=== PATIENT | male | born 1965 | race Caucasian/White ===

== ENCOUNTER 2016-11-11 09:41 | Inpatient (IN) | payer OTHER ==
[2016-11-11 09:54] VITALS: BMI 31.1
[2016-11-11] MEDS ORDERED: ASPIRIN 81 MG CHEWABLE TABLETS PO ONE (10:00)
[2016-11-11] MEDS ORDERED: HEPARIN INFUSION - 500 ML IVPB ONE (10:14)
[2016-11-11] MEDS ORDERED: ASPIRIN 81 MG CHEWABLE TABLETS ONE (10:14)
[2016-11-11 10:22] LABS: BASOPHIL 0.9 % (0-2.0); EOSINOPHIL 4.7 % (0-4.5); MCH 28.8 pg (25.7-33.7); MCHC 34.4 g/dl (32.0-35.9); MEAN CELL VOLUME 83.7 fl (80-96); MEAN PLT VOLUME 7.3 fl (7.5-11.1); NEUTROPHILS 58.7 % (42.8-82.8); PLATELET COUNT 277 K/MM3 (134-434); RDW 13.1 % (11.9-15.9); WHITE BLOOD COUNT 9.3 K/mm3 (4.0-10.0)
[2016-11-11] MEDS ORDERED: CLOPIDOGREL BISULFATE 300 MG TABLET PO ONE (10:24)
[2016-11-11] MEDS: HEPARIN INFUSION - 500 ML IVPB SCH ×2 (10:25→19:37)
[2016-11-11] MEDS ORDERED: CLOPIDOGREL BISULFATE 300 MG TABLET ONE (10:26)
[2016-11-11 10:48] LABS: INR 1.07 (0.82-1.09); PROTHROMBIN TIME (PATIENT) 11.8 SEC (9.98-11.88)
[2016-11-11 10:58] LABS: ALBUMIN 3.9 g/dl (3.4-5.0); ANION GAP 6 (8-16); BILIRUBIN,TOTAL 0.3 mg/dL (0.2-1.0); CALCIUM 9.1 mg/dL (8.5-10.1); CO2 29 mmol/L (21-32); COCKROFT - GAULT 119.86; CREATININE 1.1 mg/dL (0.7-1.3); GLUCOSE,RANDOM 159 mg/dL (74-106); MAGNESIUM 2.1 mg/dL (1.8-2.4); SGOT/AST 12 U/L (15-37); SGPT/ALT 34 U/L (12-78)
--- NOTE | 2016-11-11 10:59 | PDOC ---
History of Present Illness - History of Present Illness Initial Comments: 11/11/16 10:59 The patient is a 51 year old male, with a significant past medical history of CAD s/p 3 stents, hypertension, stable angina, and hyperlipidemia, who presents to the emergency department with epigastric pain radiating to his throat associated intermittent lightheadedness for 5 days. The patient states his pain was a 10/10 at the initial onset of pain but reports his pain is 5/10 right now. The patient describes the throat pain as a squeezing. The patient states he has usually experienced a mild chest pain with exertion s/p stent placement, however, his current pain is being experienced while at rest. The patient reports feeling lightheaded while driving yesterday and states he pulled the car to the side of the road until it subsided before he continued to drive to work. The patient states he becomes short of breath after walking a couple of blocks at baseline. He denies any worsening shortness of breath. The patient reports stopping all of his medications (plavix, aspirin, and others) about 5 months ago, and reports resuming cigarette smoking around the same time. The patient states he was made aware of a new blockage in his heart about a year ago but denies having a new stent placed. 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 She denies shortness of breath, headache and dizziness. She denies fever, chills , nausea, vomit, diarrhea and constipation. She denies dysuria, frequency, urgency and hematuria. Allergies: NKDA Past surgical history: stents x3 Social history: everyday tobacco use, denies alcohol or illicit drug use PCP - None <Maryan Zendejas - Last Filed: 11/11/16 10:59> <Elvira Samayoa - Last Filed: 11/11/16 13:20> <Hipolito Garcia - Last Filed: 11/14/16 22:04> - General Chief Complaint: Chest Pain Stated Complaint: CHEST PAIN Time Seen by Provider: 11/11/16 10:00 Past History <Maryan Zendejas - Last Filed: 11/11/16 10:59> <Elvira Samayoa - Last Filed: 11/11/16 13:20> - Past Medical History Cardiac Disorders: Yes (STENTS) HTN: Yes Hypercholesterolemia: Yes - Surgical History Cardiac Surgery: Yes (STENT X3 2014) - Psycho/Social/Smoking Cessation Hx Suicidal Ideation: No Smoking History: Current every day smoker Have you smoked in the past 12 months: No Number of Cigarettes Smoked Daily: 20 Information on smoking cessation initiated: No Hx Alcohol Use: No Drug/Substance Use Hx: No <Hipolito Garcia - Last Filed: 11/14/16 22:04> - Past Medical History Allergies/Adverse Reactions: Allergies Allergy/AdvReac Type Severity Reaction Status Date / Time No Known Allergies Allergy Verified 11/11/16 10:39 Home Medications: Ambulatory Orders NK [No Known Home Medication] 11/11/16 Review of Systems - Review of Systems Able to Perform ROS?: Yes <Maryan Zendejas - Last Filed: 11/11/16 10:59> - Review of Systems Constitutional: No: Chills, Fever Respiratory: Yes: Shortness of Breath, SOB with Exertion Cardiac (ROS): Yes: Chest Pain ABD/GI: Yes: Nausea. No: Vomiting All Other Systems: Reviewed and Negative <Hipolito Garcia - Last Filed: 11/14/16 22:04> *Physical Exam - Vital Signs Last Vital Signs Temp Pulse Resp BP Pulse Ox 98.6 F 86 20 139/100 97 11/11/16 09:50 11/11/16 09:50 11/11/16 09:50 11/11/16 09:50 11/11/16 09:50 - Physical Exam Comments: 11/11/16 11:04 GENERAL: The patient is awake, alert, and fully oriented, in no acute distress. HEAD: Normal with no signs of trauma. EYES: Pupils equal, round and reactive to light, extraocular movements intact, sclera anicteric, conjunctiva clear with no pallor. ENT: Ears normal, nares patent, oropharynx clear without exudates. Moist mucous membranes. NECK: Normal range of motion, supple without lymphadenopathy, JVD, or masses. LUNGS: Breath sounds equal, clear to auscultation bilaterally. No wheeze/ crackles. HEART: Regular rate and rhythm, normal S1 and S2 without murmur or rub. ABDOMEN: Soft/nontender/nondistended. BS wnl. No guarding or rebound. No palpable masses. No hepatosplenomegaly. EXTREMITIES: Normal range of motion, no edema. No clubbing or cyanosis. No cords, erythema, or tenderness. NEUROLOGICAL: Cranial nerves II through XII grossly intact. Normal speech, normal gait. PSYCH: Normal mood, normal affect. SKIN: Warm, Dry, normal turgor, no rashes or lesions noted. <Maryan Zendejas - Last Filed: 11/11/16 10:59> - Vital Signs Last Vital Signs Temp Pulse Resp BP Pulse Ox 98.6 F 86 20 139/100 97 11/11/16 09:50 11/11/16 09:50 11/11/16 09:50 11/11/16 09:50 11/11/16 09:50 <Elvira Samayoa - Last Filed: 11/11/16 13:20> - Vital Signs Last Vital Signs Temp Pulse Resp BP Pulse Ox 98.6 F 86 20 139/100 97 11/11/16 09:50 11/11/16 09:50 11/11/16 09:50 11/11/16 09:50 11/11/16 09:50 <Hipolito Garcia - Last Filed: 11/14/16 22:04> Heart Score/ECG Review #1 ECG reviewed & interpreted by me at: 09:54 General ECG Interpretation: Sinus Rhythm, Normal Rate (78), Normal Intervals ( qtc 421), No acute ischemic changes <Hipolito Garcia - Last Filed: 11/14/16 22:04> ED Treatment Course - LABORATORY CBC & Chemistry Diagram: 11/11/16 10:12 11/11/16 10:12 - ADDITIONAL ORDERS Additional order review: 11/11/16 10:12 RBC 5.01 MCV 83.7 MCHC 34.4 RDW 13.1 MPV 7.3 L Neutrophils % 58.7 Lymphocytes % 27.3 Monocytes % 8.4 Eosinophils % 4.7 H Basophils % 0.9 - Medications Given in the ED: ED Medications Discontinued Medications Generic Name Dose Route Start Last Admin Trade Name Freq PRN Reason Stop Dose Admin Aspirin 162 mg 11/11/16 10:00 11/11/16 10:25 Asa - PO 11/11/16 10:01 162 mg ONCE ONE Administration Clopidogrel Bisulfate 300 mg 11/11/16 10:24 11/11/16 10:35 Plavix - PO 11/11/16 10:25 300 mg ONCE ONE Administration <Maryan Zendejas - Last Filed: 11/11/16 10:59> - LABORATORY CBC & Chemistry Diagram: 11/11/16 10:12 11/11/16 10:12 - ADDITIONAL ORDERS Additional order review: Laboratory Results 11/11/16 11/11/16 11/11/16 10:12 10:12 10:12 INR 1.07 Sodium 138 Potassium 4.7 Chloride 103 Carbon Dioxide 29 D Anion Gap 6 L BUN 15 D Creatinine 1.1 Creat Clearance w eGFR > 60 Random Glucose 159 H D Calcium 9.1 Magnesium 2.1 Total Bilirubin 0.3 D AST 12 L D ALT 34 Alkaline Phosphatase 83 Creatine Kinase 154 D Creatine Kinase Index 0.7 CK-MB (CK-2) 1.022 CK-MB (CK-2) Rel Index Cancelled Troponin I 0.20 H D Total Protein 8.0 Albumin 3.9 11/11/16 10:12 RBC 5.01 MCV 83.7 MCHC 34.4 RDW 13.1 MPV 7.3 L Neutrophils % 58.7 Lymphocytes % 27.3 Monocytes % 8.4 Eosinophils % 4.7 H Basophils % 0.9 - RADIOLOGY Radiology Studies Ordered: 11/11/16 13:21 EXAM:RAD/CHEST X-RAY PORTABLE* Chest: Chest pain A single AP view the chest reveals an apical lordotic projection, clear lungs, normal mediastinum and sharp angles. The bones and soft tissues are intact. IMPRESSION: No acute pathology. No change of an adverse nature since 03/18/2016. Reported By: Santhosh Medrano MD 11/11/16 Reviewed by: Hipolito Garcia MD - Medications Given in the ED: ED Medications Discontinued Medications Generic Name Dose Route Start Last Admin Trade Name Freq PRN Reason Stop Dose Admin Aspirin 162 mg 11/11/16 10:00 11/11/16 10:25 Asa - PO 11/11/16 10:01 162 mg ONCE ONE Administration Clopidogrel Bisulfate 300 mg 11/11/16 10:24 11/11/16 10:35 Plavix - PO 11/11/16 10:25 300 mg ONCE ONE Administration <Elvira Samayoa - Last Filed: 11/11/16 13:20> - LABORATORY CBC & Chemistry Diagram: 11/11/16 10:12 11/11/16 10:12 - ADDITIONAL ORDERS Additional order review: 11/11/16 10:12 RBC 5.01 MCV 83.7 MCHC 34.4 RDW 13.1 MPV 7.3 L Neutrophils % 58.7 Lymphocytes % 27.3 Monocytes % 8.4 Eosinophils % 4.7 H Basophils % 0.9 - RADIOLOGY Radiology Studies Ordered: Category Date Time Status CHEST X-RAY PORTABLE* [RAD] Stat Radiology 11/11/16 10:01 Ordered - Medications Given in the ED: ED Medications Discontinued Medications Generic Name Dose Route Start Last Admin Trade Name Freq PRN Reason Stop Dose Admin Aspirin 162 mg 11/11/16 10:00 11/11/16 10:25 Asa - PO 11/11/16 10:01 162 mg ONCE ONE Administration Clopidogrel Bisulfate 300 mg 11/11/16 10:24 11/11/16 10:35 Plavix - PO 11/11/16 10:25 300 mg ONCE ONE Administration <Hipolito Garcia - Last Filed: 11/14/16 22:04> Medical Decision Making - Critical Care Time Total Critical Care Time (minutes): 30 Critical Care Statement: The care of this patient involved high complexity decision making to prevent further life threatening deterioration of the patient 's condition and/or to evalute & treat vital organ system(s) failure or risk of failure. - Medical Decision Making 11/11/16 10:57 A portion of this note was documented by scribe services under my direction. I have reviewed the details of the note, within reason, and agree with the documentation with the following case summary and management plan written by me. 51-year-old male with history of hypertension, high cholesterol, known CAD with 3 stents, known obstructed coronaries requiring further stenting diagnosed one year ago the patient did not follow-up, has been noncompliant with his medications over the last 5-6 months and also started smoking again, comes in with worsening/crescendo epigastric chest pain radiating to the throat and left shoulder, h/o chest pain occurring with exertion at baseline, now occurring at rest. Has severe episode last night while watching TV, presents here for evaluation. Has only minimal discomfort at this time. Vital signs as noted, blood pressure elevated. Exam is within normal limits 51-year-old male with known obstructive CAD that has been untreated now with progressive unstable angina, hemodynamically stable here and asymptomatic. Full cardiac workup Full and to coagulation with aspirin, Plavix, heparin Cardiology consult Admission, ? transfer directly for cath 11/11/16 11:24 CBC and chemistries are within normal limits, but troponin equivocal at 0.2. Remains pain free. Discussed with Dr. Hensley: in light of normal EKG, no current sxs, and h/o noncompliance, will admit and evaluate on telemetry. Dr. Zaidi, microarray operations vice president for service, accepts for inpatient telemetry. <Hipolito Garcia - Last Filed: 11/14/16 22:04> *DC/Admit/Observation/Transfer - Attestations Scribe Attestion: 11/11/16 11:04 Documentation prepared by Maryan Zendejas, acting as medical hospital sales for Hipolito Garcia MD, MD <Maryan Zendejas - Last Filed: 11/11/16 10:59> <Elvira Samayoa - Last Filed: 11/11/16 13:20> - Discharge Dispostion Admit: Yes <Hipolito Garcia - Last Filed: 11/14/16 22:04> Diagnosis at time of Disposition: Unstable angina - Discharge Dispostion Disposition: TRANSFER ACUTE CARE/OTHER HOSP
[2016-11-11 11:02] LABS: ALK PHOS 83 U/L (45-117)
[2016-11-11] MEDS ORDERED: NITROGLYCERIN 2% OINTMENT - 1GM PACKET TD ONE (15:17)
[2016-11-11] MEDS ORDERED: ONDANSETRON 4 MG/2 ML VIAL IVPB ONE (15:17)
[2016-11-11] MEDS ORDERED: morphine CARPU-JECT 4 MG/1 ML DISP.SYRIN IVPUSH ONE (15:17)
--- NOTE | 2016-11-11 16:22 | EKG ---
Test Reason : Blood Pressure : / mmHG Vent. Rate : 068 BPM Atrial Rate : 068 BPM P-R Int : 158 ms QRS Dur : 090 ms QT Int : 394 ms P-R-T Axes : 034 080 055 degrees QTc Int : 418 ms NORMAL SINUS RHYTHM NORMAL ECG WHEN COMPARED WITH ECG OF 11-NOV-2016 09:54, NO SIGNIFICANT CHANGE WAS FOUND Confirmed by BALTAZAR OLIVER MD ([id number]) on 11/11/2016 4:22:10 PM Referred By: Confirmed By:BALTAZAR OLIVER MD
--- NOTE | 2016-11-11 16:22 | EKG ---
Test Reason : Blood Pressure : / mmHG Vent. Rate : 078 BPM Atrial Rate : 078 BPM P-R Int : 156 ms QRS Dur : 092 ms QT Int : 370 ms P-R-T Axes : 036 081 057 degrees QTc Int : 421 ms NORMAL SINUS RHYTHM NORMAL ECG WHEN COMPARED WITH ECG OF 18-MAR-2016 09:22, NO SIGNIFICANT CHANGE WAS FOUND Confirmed by BALTAZAR OLIVER MD ([id number]) on 11/11/2016 4:22:15 PM Referred By: Confirmed By:BALTAZAR OLIVER MD
[2016-11-11 18:42] LABS: TROPONIN I 0.19 ng/ml (0.00-0.05)
[2016-11-11] MEDS ORDERED: HEPARIN NA (PORCINE) 5,000 UNITS/ML 1ML VIAL IVPUSH PRN (19:27)
[2016-11-11] MEDS ORDERED: ONDANSETRON 4 MG/2 ML VIAL IVPB PRN (19:29)
[2016-11-11] MEDS: HEPARIN NA (PORCINE) 5,000 UNITS/ML 1ML VIAL IVPUSH PRN (19:36)
--- NOTE | 2016-11-11 21:52 | HP ---
Admitting History and Physical - Primary Care Physician PCP: chest pain - Admission History of Present Illness: Pt is a 51 y/o male w/ PMH significant for CAD s/p 3 stent placement, HTN and HLD. About 6 months ago pt started to feel better and stopped all his meds and began smoking again. Pt now presented to the ER w/ SSCP radiating to his throat wc has been occurring for a few weeks. Last night he said that his pain was 10/10 but when he actually came to the ER his pain was only 6/10. He was found to have a slightly elevated troponin in the ER. History Source: Patient - Past Medical History Cardiovascular: Yes: CAD, HTN, Hyperlipdemia, Other (Cardiac stents) - Past Surgical History Additional Past Surgical History: Cardiac stents - Smoking History Smoking history: Current every day smoker Have you smoked in the past 12 months: No Aproximately how many cigarettes per day: 20 - Alcohol/Substance Use Hx Alcohol Use: No Home Medications - Allergies Allergies/Adverse Reactions: Allergies Allergy/AdvReac Type Severity Reaction Status Date / Time No Known Allergies Allergy Verified 11/11/16 10:39 - Home Medications Home Medications: Ambulatory Orders NK [No Known Home Medication] 11/11/16 Review of Systems - Review of Systems Constitutional: reports: No Symptoms Eyes: reports: No Symptoms HENT: reports: No Symptoms Neck: reports: No Symptoms Cardiovascular: reports: Chest Pain Respiratory: reports: No Symptoms Gastrointestinal: reports: No Symptoms Genitourinary: reports: No Symptoms Physical Examination Vital Signs: Vital Signs Temperature 97.7 F 11/11/16 18:00 Pulse Rate 78 11/11/16 19:56 Respiratory Rate 20 11/11/16 19:56 Blood Pressure 134/90 11/11/16 19:56 O2 Sat by Pulse Oximetry (%) 99 11/11/16 15:07 Constitutional: Yes: Well Nourished Eyes: Yes: WNL HENT: Yes: WNL Neck: Yes: Supple Cardiovascular: Yes: WNL, Regular Rate and Rhythm Respiratory: Yes: WNL, Regular, CTA Bilaterally Gastrointestinal: Yes: WNL, Normal Bowel Sounds, Soft Musculoskeletal: Yes: WNL Extremities: Yes: WNL Edema: No Neurological: Yes: WNL, Alert, Oriented Problem List - Problems (1) Unstable angina Assessment/Plan: Serial cpk/troponin Cardio consult Cont plavix/asa/heparin Check echo Code(s): I20.0 - UNSTABLE ANGINA (2) CAD (coronary artery disease) Code(s): I25.10 - ATHSCL HEART DISEASE OF [place] CORONARY ARTERY W/O ANG PCTRS (3) HTN (hypertension) Assessment/Plan: BP stable Cont to monitor Code(s): I10 - ESSENTIAL (PRIMARY) HYPERTENSION
[2016-11-11 23:35] LABS: TROPONIN I 0.21 ng/ml (0.00-0.05)
[2016-11-12] MEDS: HEPARIN NA (PORCINE) 5,000 UNITS/ML 1ML VIAL IVPUSH PRN (03:13)
[2016-11-12] MEDS: HEPARIN INFUSION - 500 ML IVPB SCH ×3 (03:15→09:30)
[2016-11-12] MEDS ORDERED: ASPIRIN COATED 81 MG TABLET.EC PO SCH (10:00)
[2016-11-12] MEDS ORDERED: CLOPIDOGREL BISULFATE 75 MG TABLET (FP) PO SCH (10:00)
[2016-11-12] MEDS ORDERED: ATORVASTATIN CA 80 MG TABLET (FP) PO SCH (11:15)
--- NOTE | 2016-11-12 11:27 | CON.CARD ---
Cardiology Consult (text) - Consultation Consultation Note: cc: cp hpi: 51 m hx smoking, hld, cad s/p pci (2015 had cp, no IA, got 3 stents at [facility]), here with cp. Pt had chest and throat tightness/pain in 2014 that led to his pci, sxs resolved after and had been feeling well until about 6 mos ago when started to have mcpherson after a few blocks. He did not see cardio about sxs. Then about 1 week ago he started having the same chest/throat sxs he had before his prior pci, ignored sxs at first but got worse so came to ER. No palps, sob at rest, dizzy, loc, pnd, orthopnea, le edema. Had some cp earlier this AM, now cp free. pmh: per hpi psh: pci social: active smoking fam: no premature cad, scd ros: per hpi; no fever, cough, nvd, carey, vision changes, wt loss, gib, hematuria , rash meds: Home Medications Medication Instructions Recorded NK [No Known Home Medication] 11/11/16 pe: Vital Signs Temp 97.8 F 11/12/16 06:15 Pulse 78 11/12/16 06:15 Resp 18 11/12/16 06:15 BP 124/75 11/12/16 06:15 Pulse Ox 99 11/11/16 15:07 Intake & Output 11/11/16 11/11/16 11/12/16 11:59 23:59 11:59 Intake Total 60 276.5 Balance 60 276.5 Weight 230 lb Intake: IV 60 276.5 Heparin Infusion - 500 ml 60 276.5 @ 1,000 UNITS/HR 20 mls/ hr IVPB TITR ANGELIKA Rx#: [id number] Other: Voiding Method Toilet Bowel Movement No Height 6 ft Body Mass Index (BMI) 31.1 nad, no jvd rrr s1s2 no mrg cta bl nl eff no le e/c/c abd nt nd pos bs no jaundice diaphoresis +dp pt no carotid bruits aaox3 Laboratory Last Values WBC 9.3 K/mm3 (4.0-10.0) 11/11/16 10:12 RBC 5.01 M/mm3 (4.00-5.60) 11/11/16 10:12 Hgb 14.4 GM/dL (11.7-16.9) D 11/11/16 10:12 Hct 41.9 % (35.4-49) 11/11/16 10:12 MCV 83.7 fl (80-96) 11/11/16 10:12 MCHC 34.4 g/dl (32.0-35.9) 11/11/16 10:12 RDW 13.1 % (11.9-15.9) 11/11/16 10:12 Plt Count 277 K/MM3 (134-434) 11/11/16 10:12 MPV 7.3 fl (7.5-11.1) L 11/11/16 10:12 Neutrophils % 58.7 % (42.8-82.8) 11/11/16 10:12 Lymphocytes % 27.3 % (8-40) 11/11/16 10:12 Monocytes % 8.4 % (3.8-10.2) 11/11/16 10:12 Eosinophils % 4.7 % (0-4.5) H 11/11/16 10:12 Basophils % 0.9 % (0-2.0) 11/11/16 10:12 INR 1.07 (0.82-1.09) 11/11/16 10:12 PTT (Actin FS) 99.9 SECONDS (26.9-34.4) H D 11/12/16 07:30 Sodium 138 mmol/L (136-145) 11/11/16 10:12 Potassium 4.7 mmol/L (3.5-5.1) 11/11/16 10:12 Chloride 103 mmol/L (98-107) 11/11/16 10:12 Carbon Dioxide 29 mmol/L (21-32) D 11/11/16 10:12 Anion Gap 6 (8-16) L 11/11/16 10:12 BUN 15 mg/dL (7-18) D 11/11/16 10:12 Creatinine 1.1 mg/dL (0.7-1.3) 11/11/16 10:12 Creat Clearance w eGFR > 60 (>60) 11/11/16 10:12 Random Glucose 159 mg/dL (74-106) H D 11/11/16 10:12 Calcium 9.1 mg/dL (8.5-10.1) 11/11/16 10:12 Magnesium 2.1 mg/dL (1.8-2.4) 11/11/16 10:12 Total Bilirubin 0.3 mg/dL (0.2-1.0) D 11/11/16 10:12 AST 12 U/L (15-37) L D 11/11/16 10:12 ALT 34 U/L (12-78) 11/11/16 10:12 Alkaline Phosphatase 83 U/L (45-117) 11/11/16 10:12 Creatine Kinase 153 IU/L (39-308) 11/11/16 22:45 Creatine Kinase Index 0.6 % (0.0-5.0) 11/11/16 22:45 CK-MB (CK-2) 1.041 ng/ml (0.5-3.6) 11/11/16 22:45 CK-MB (CK-2) Rel Index Cancelled 11/11/16 10:12 Troponin I 0.21 ng/ml (0.00-0.05) H 11/11/16 22:45 Total Protein 8.0 g/dl (6.4-8.2) 11/11/16 10:12 Albumin 3.9 g/dl (3.4-5.0) 11/11/16 10:12 cxr: clear lungs tele: sr ecg 11/11/16: sr, nl intervals, no ischemic changes est cct 36 mins a/p: 51 m hx smoking, hld, cad s/p pci (2015 had cp, no IA, got 3 stents at [facility]), here with cp. cad/pci, cp, unstable angina: -pt with hx pci and now with recent onset of cp similar to prior before his pci in past -ecg unremarkable -ce's unremarkable x3 -treating for unstable angina with dapt, hep gtt -will check echo -case d/w interventionalist and plan is for cardiac cath today at [facility] -currently no cp, can use nitro sl prn for recurrent cp -will start lipitor 80 as well -bp stable sob: -no signs of chf -check echo -possible anginal equivalent, cath as above hld: -start lipitor 80 tob use: -smoking cessation discussed
[2016-11-12 14:04] VITALS: BP 141/74; PULSE 74; TEMP 98.1
--- NOTE | 2016-12-12 17:28 | DS ---
Physical Examination Vital Signs: Vital Signs Temperature 98.1 F 11/12/16 14:00 Pulse Rate 74 11/12/16 14:00 Respiratory Rate 20 11/12/16 14:00 Blood Pressure 141/74 11/12/16 14:00 O2 Sat by Pulse Oximetry (%) 99 11/12/16 09:00 Neck: Yes: Supple Cardiovascular: Yes: WNL, Regular Rate and Rhythm Respiratory: Yes: WNL, Regular, CTA Bilaterally Gastrointestinal: Yes: WNL, Normal Bowel Sounds, Soft Discharge Summary Reason For Visit: UNSTABLE ANGINA Current Active Problems CAD (coronary artery disease) (Acute) HTN (hypertension) (Acute) Unstable angina (Acute) Hospital Course: Pt is a 51 y/o male w/ PMH significant for CAD s/p 3 stent placement, HTN and HLD. About 6 months ago pt started to feel better and stopped all his meds and began smoking again. Pt now presented to the ER w/ SSCP radiating to his throat wc has been occurring for a few weeks. Last night he said that his pain was 10/10 but when he actually came to the ER his pain was only 6/10. He was found to have a slightly elevated troponin in the ER and was seen by cardio and discharged in stable condition - Instructions Disposition: TRANSFER ACUTE CARE/OTHER HOSP - Home Medications Comprehensive Discharge Medication List: Ambulatory Orders NK [No Known Home Medication] 11/11/16
== END 2016-11-12 15:17 | disposition short-term general hospital (02) | DRG 198 ==
LOC: JER 09:41 → JERBED 11:33 → J4S 15:46 → OBSVTOIN 19:32
PROVIDERS: ADMIT Internal Medicine; ATTEND Internal Medicine
DX: I25.110 Atherosclerotic heart disease of native coronary artery with unstable angina pectoris (principal); I10 Essential (primary) hypertension; E78.5 Hyperlipidemia, unspecified; F17.210 Nicotine dependence, cigarettes, uncomplicated; Z95.5 Presence of coronary angioplasty implant and graft
CPT/HCPCS: 36415; 71010-TC; 80053; 82550; 82553; 83735; 84484; 85025; 85610; 85730; 93005; 93010; 93306-TC; 99284-25; G0378; J1644